=== PATIENT | female | born 1965 | race Caucasian/White ===

== ENCOUNTER 2025-03-13 15:24 | Emergency (ER) | payer OTHER, SELFPAY ==
[2025-03-13] VITALS (19 sets, daily range): BP systolic 95–153; BP diastolic 55–78; PULSE 81–110; RESP 14–28; TEMP 38.4; O2SAT 92–96; BMI 24.9
--- NOTE | 2025-03-13 15:41 | DI.RAD.S_ITS ---
PROCEDURE: XR CHEST 1V INDICATIONS: suspected sepsis TECHNIQUE: One view of the chest was acquired. COMPARISON: [facility], , US PERIPH VENOUS LOW EXTREM RT, 03/13/2025, 16:34. [facility], CR, XR TIBIA FIBULA RT 2V, 03/13/2025, 16:05. FINDINGS: Surgical changes and devices: None. Lungs and pleura: Lungs are clear. No pleural effusions or pneumothorax. Mediastinum: The cardiac contours are within normal limits. The aorta demonstrates calcification and tortuosity. Bones and chest wall: No suspicious bony lesions. Overlying soft tissues appear unremarkable. IMPRESSION: No focal infiltrates are seen. Dictated by: Yuriy Gerber M.D. on 03/13/2025 at 15:43 Approved by: Yuriy Gerber M.D. on 03/13/2025 at 15:44
--- NOTE | 2025-03-13 15:43 | DI.US.S_ITS ---
PROCEDURE: US PERIPH VENOUS LOW EXTREM RT INDICATIONS: pain/swelling, post ORIF TECHNIQUE: Real-time imaging, as well as color and pulse Doppler interrogation, were performed of the lower extremity deep veins from the inguinal ligament to the popliteal fossa, with documentation of the visualized calf veins. COMPARISON: [facility], CR, XR TIBIA FIBULA RT 2V, 03/13/2025, 16:05. [facility], CR, XR CHEST 1V, 03/13/2025, 15:55. FINDINGS: The common femoral, femoral, popliteal, and the visualized calf veins are normally compressible, and free of intraluminal thrombus. Color and pulse Doppler demonstrate normal phasic intraluminal flow. There is normal augmentation response to distal compression maneuver. IMPRESSION: No findings of lower extremity deep venous thrombosis. Dictated by: Yuriy Gerber M.D. on 03/13/2025 at 16:12 Approved by: Yuriy Gerber M.D. on 03/13/2025 at 16:13
[2025-03-13] MEDS: SODIUM CHLORIDE 0.9% 1,000 ML 1000 ML IV (16:01)
--- NOTE | 2025-03-13 16:05 | ED.SKABFB ---
HPI - Skin/Abscess/Foreign Bdy <Cholo Izaguirre DO - Last Filed: 03/14/25 09:01> General Chief complaint: Skin/Abscess/Foreign Body Stated complaint: possible infection rt leg Time Seen by Provider: 03/13/25 15:36 Source: patient Mode of arrival: Wheelchair History of Present Illness HPI narrative: 59-year-old female recently had open reduction internal fixation right tib-fib January 29 in [place] presents with severe right-sided leg pain that started last night worse this morning. Patient has noticed increased redness and tiny bit of drainage from incision site. Patient has already follow up with orthopedic provider Dr. Marroquin [facility] once already. Patient denies fever chills body aches his pain shortness of breath. Nonweightbearing at this time. Other than what is stated 14 point review of system is negative. Related Data Previous Rx's ?Medication ?Instructions ?Recorded oxycodone-acetaminophen 5 mg-325 1 tab PO Q4-6H PRN pain #14 tabs 03/14/25 mg tablet (Percocet) sulfamethoxazole 800 1 tab PO BID 7 days #14 tabs 03/14/25 mg-trimethoprim 160 mg tablet (Bactrim DS) Allergies Allergy/AdvReac Type Severity Reaction Status Date / Time No Known Drug Allergies Allergy Verified 03/13/25 15:41 <Dav White MD - Last Filed: 03/14/25 04:16> History of Present Illness HPI narrative: 59-year-old female recently had open reduction internal fixation right tib-fib January 29 in [place] presents with severe right-sided leg pain that started last night worse this morning. Patient has noticed increased redness and tiny bit of drainage from incision site. Patient has already follow up with [facility]. Patient denies fever chills body aches his pain shortness of breath. Nonweightbearing at this time. Other than what is stated 14 point review of system is negative. Review of Systems <Cholo Izaguirre DO - Last Filed: 03/14/25 09:01> Review of Systems ROS Unobtainable: All systems reviewed & are unremarkable except as noted in HPI and below Patient History <Cholo Izaguirre DO - Last Filed: 03/14/25 09:01> Social History Smoking Status: Current some day smoker Smoking Status: Current some day smoker tobacco type: vaping Exam <Cholo Izaguirre DO - Last Filed: 03/14/25 09:01> Narrative Exam Narrative: GENERAL: [59] year old patient appears stated age. Well-developed patient, in mild distress. HEAD: Atraumatic. Normocephalic. EYES: Pupils equal round and reactive. Extraocular motions intact. No scleral icterus. No injection or drainage. ENT: Nose without bleeding, purulent drainage. Throat without erythema, tonsillar hypertrophy or exudate. Airway patent. NECK: Trachea midline. Non tender CARDIOVASCULAR: Tachycardic Regular rate and rhythm without murmurs, gallops, or rubs. RESPIRATORY: Clear to auscultation. Breath sounds equal bilaterally. No wheezes, rales, or rhonchi. GASTROINTESTINAL: Abdomen soft, non-tender, nondistended. EXTREMITIES:RLE mid tibial region warm/redness/TTP/ motor/sensory intact +2DP +2PT cap refill<2secs BACK: Nontender without deformity or crepitance. No flank tenderness. NEURO: AOx3. SKIN: No rash or erythema of visible areas Initial Vital Signs Initial Vital Signs: Vital Signs Temperature 101.1 F H 03/13/25 15:28 Pulse Rate 110 H 03/13/25 15:28 Respiratory Rate 20 03/13/25 15:28 Blood Pressure 124/78 03/13/25 15:28 Pulse Oximetry 94 03/13/25 15:28 Oxygen Delivery Method Room Air 03/13/25 15:28 <Dav White MD - Last Filed: 03/14/25 04:16> Initial Vital Signs Initial Vital Signs: Vital Signs Temperature 101.1 F H 03/13/25 15:28 Pulse Rate 110 H 03/13/25 15:28 Respiratory Rate 20 03/13/25 15:28 Blood Pressure 124/78 03/13/25 15:28 Pulse Oximetry 94 03/13/25 15:28 Oxygen Delivery Method Room Air 03/13/25 15:28 Course <Cholo Izaguirre DO - Last Filed: 03/14/25 09:01> Orders Ordered: Discontinued Medications Acetaminophen (Acetaminophen 325 Mg Tablet) 975 mg PO NOW ONE Stop: 03/13/25 16:14 Last Admin: 03/13/25 16:23 Dose: 975 mg Documented By: CHARITY Hydromorphone HCl (Hydromorphone 1 Mg/Ml Syringe) 1 mg IV NOW ONE Stop: 03/13/25 16:08 Last Admin: 03/13/25 16:12 Dose: 1 mg Documented By: CHARITY Hydromorphone HCl (Hydromorphone Hcl 0.5 Mg/0.5 Ml Syringe) 0.5 mg IV NOW ONE Stop: 03/13/25 23:52 Last Admin: 03/14/25 00:13 Dose: 0.5 mg Documented By: MERCY Sodium Chloride (Normal Saline 0.9%) 1,000 mls @ 1,000 mls/hr IV BOLUS ONE Stop: 03/13/25 16:40 Last Infusion: 03/13/25 16:32 Dose: Infused Documented By: Admin: 03/13/25 16:01 Dose: 1,000 mls/hr Documented By: BENIGNO Vancomycin HCl (Vancomycin) 1,000 mg in 200 mls @ 200 mls/hr IV NOW ONE Stop: 03/13/25 17:11 Last Infusion: 03/13/25 17:59 Dose: Infused Documented By: Admin: 03/13/25 17:05 Dose: 200 mls/hr Documented By: JUAN JOSE Piperacillin Sod/Tazobactam (Sod 4.5 gm/ Sodium Chloride) 100 mls @ 200 mls/hr IV NOW ONE Stop: 03/13/25 16:12 Last Infusion: 03/13/25 16:50 Dose: Infused Documented By: Admin: 03/13/25 16:20 Dose: 200 mls/hr Documented By: CHARITY Lactated Ringer's (Lactated Ringers) 500 mls @ 1,000 mls/hr IV BOLUS ONE Stop: 03/13/25 16:43 Last Admin: 03/13/25 16:43 Dose: Not Given Documented By: JUAN JOSE Lactated Ringer's (Lactated Ringers) 500 mls @ 1,000 mls/hr IV BOLUS ONE Stop: 03/13/25 16:51 Last Admin: 03/13/25 16:44 Dose: Not Given Documented By: JUAN JOSE Lactated Ringer's (Lactated Ringers) 500 mls @ 1,000 mls/hr IV BOLUS ONE Stop: 03/13/25 17:00 Last Admin: 03/13/25 16:44 Dose: Not Given Documented By: JUAN JOSE Lactated Ringer's (Lactated Ringers) 1,000 mls @ 1,000 mls/hr IV BOLUS ONE Stop: 03/13/25 17:33 Last Infusion: 03/13/25 17:59 Dose: Infused Documented By: Admin: 03/13/25 16:36 Dose: 1,000 mls/hr Documented By: CHARITY Ketorolac Tromethamine (Ketorolac 30 Mg/Ml Vial) 15 mg IV NOW ONE Stop: 03/13/25 16:14 Last Admin: 03/13/25 16:20 Dose: 15 mg Documented By: CHARITY Ondansetron HCl (Ondansetron 4 Mg/2 Ml Inj) 4 mg IV NOW PRN PRN Reason: Nausea And Vomiting Last Admin: 03/13/25 16:21 Dose: 4 mg Documented By: CHARITY Ondansetron HCl (Ondansetron 4 Mg Odt) 4 mg PO NOW PRN PRN Reason: Nausea And Vomiting Oxycodone/Acetaminophen (Oxycodone/Apap 5/325 Prepack) 1 bottle MISC DIRECTED ONE Stop: 03/14/25 00:56 Last Admin: 03/14/25 01:17 Dose: 1 bottle Documented By: KALPANA Vital Signs Vital signs: Vital Signs - 8 hr 03/14/25 01:46 Temperature 99.4 F Pulse Rate 84 Respiratory Rate 20 Blood Pressure 112/70 Pulse Oximetry 96 Oxygen Delivery Method Room Air <Dav White MD - Last Filed: 03/14/25 04:16> Orders Ordered: Discontinued Medications Acetaminophen (Acetaminophen 325 Mg Tablet) 975 mg PO NOW ONE Stop: 03/13/25 16:14 Last Admin: 03/13/25 16:23 Dose: 975 mg Documented By: CHARITY Hydromorphone HCl (Hydromorphone 1 Mg/Ml Syringe) 1 mg IV NOW ONE Stop: 03/13/25 16:08 Last Admin: 03/13/25 16:12 Dose: 1 mg Documented By: CHARITY Hydromorphone HCl (Hydromorphone Hcl 0.5 Mg/0.5 Ml Syringe) 0.5 mg IV NOW ONE Stop: 03/13/25 23:52 Last Admin: 03/14/25 00:13 Dose: 0.5 mg Documented By: MERCY Sodium Chloride (Normal Saline 0.9%) 1,000 mls @ 1,000 mls/hr IV BOLUS ONE Stop: 03/13/25 16:40 Last Infusion: 03/13/25 16:32 Dose: Infused Documented By: Admin: 03/13/25 16:01 Dose: 1,000 mls/hr Documented By: BENIGNO Vancomycin HCl (Vancomycin) 1,000 mg in 200 mls @ 200 mls/hr IV NOW ONE Stop: 03/13/25 17:11 Last Infusion: 03/13/25 17:59 Dose: Infused Documented By: Admin: 03/13/25 17:05 Dose: 200 mls/hr Documented By: JUAN JOSE Piperacillin Sod/Tazobactam (Sod 4.5 gm/ Sodium Chloride) 100 mls @ 200 mls/hr IV NOW ONE Stop: 03/13/25 16:12 Last Infusion: 03/13/25 16:50 Dose: Infused Documented By: Admin: 03/13/25 16:20 Dose: 200 mls/hr Documented By: CHARITY Lactated Ringer's (Lactated Ringers) 500 mls @ 1,000 mls/hr IV BOLUS ONE Stop: 03/13/25 16:43 Last Admin: 03/13/25 16:43 Dose: Not Given Documented By: JUAN JOSE Lactated Ringer's (Lactated Ringers) 500 mls @ 1,000 mls/hr IV BOLUS ONE Stop: 03/13/25 16:51 Last Admin: 03/13/25 16:44 Dose: Not Given Documented By: JUAN JOSE Lactated Ringer's (Lactated Ringers) 500 mls @ 1,000 mls/hr IV BOLUS ONE Stop: 03/13/25 17:00 Last Admin: 03/13/25 16:44 Dose: Not Given Documented By: JUAN JOSE Lactated Ringer's (Lactated Ringers) 1,000 mls @ 1,000 mls/hr IV BOLUS ONE Stop: 03/13/25 17:33 Last Infusion: 03/13/25 17:59 Dose: Infused Documented By: Admin: 03/13/25 16:36 Dose: 1,000 mls/hr Documented By: CHARITY Ketorolac Tromethamine (Ketorolac 30 Mg/Ml Vial) 15 mg IV NOW ONE Stop: 03/13/25 16:14 Last Admin: 03/13/25 16:20 Dose: 15 mg Documented By: CHARITY Ondansetron HCl (Ondansetron 4 Mg/2 Ml Inj) 4 mg IV NOW PRN PRN Reason: Nausea And Vomiting Last Admin: 03/13/25 16:21 Dose: 4 mg Documented By: CHARITY Ondansetron HCl (Ondansetron 4 Mg Odt) 4 mg PO NOW PRN PRN Reason: Nausea And Vomiting Oxycodone/Acetaminophen (Oxycodone/Apap 5/325 Prepack) 1 bottle MISC DIRECTED ONE Stop: 03/14/25 00:56 Last Admin: 03/14/25 01:17 Dose: 1 bottle Documented By: KALPANA Vital Signs Vital signs: Vital Signs - 8 hr 03/14/25 01:46 Temperature 99.4 F Pulse Rate 84 Respiratory Rate 20 Blood Pressure 112/70 Pulse Oximetry 96 Oxygen Delivery Method Room Air MDM - Skin/Abscess/Foreign Bdy <Cholo Izaguirre, - Last Filed: 03/14/25 09:01> Lab Data 03/13/25 15:50 03/13/25 15:50 Labs: Lab Results 03/13/25 Range/Units 15:50 WBC 16.6 H (4.5-11.0) X10^3/uL RBC 4.34 (4.0-5.2) X10^6/uL Hgb 13.6 (12.0-16.0) g/dL Hct 39.6 (36-46) % MCV 91.4 (80-100) fL MCH 31.4 (26-34) PG MCHC 34.4 (30-36) % RDW 13.7 (11.6-14.8) % Plt Count 257 (150-400) X10^3/uL Neut % (Auto) 85.0 H (50-75) % Lymph % (Auto) 9.2 L (25-40) % [place] % (Auto) 4.9 (3-14) % Eos % (Auto) 0.5 L (2-4) % Baso % (Auto) 0.4 (0-2) % Neut # (Auto) 66835 H (0748-0444) /uL Lymph # (Auto) 1500 (0272-8555) /uL [place] # (Auto) 800 (0-900) /uL Eos # (Auto) 100 (0-450) /uL Baso # (Auto) 100 (0-100) /uL ESR 15 (0-20) MM/HR PT 10.7 (9.4-12.5) SECONDS INR 0.9 (0.9-1.3) APTT 28 (25.1-36.5) SECONDS Sodium 139 (137-145) mmol/L Potassium 4.3 (3.4-5.1) mmol/L Chloride 106 (98-107) mmol/L Carbon Dioxide 23 (22-32) mmol/L BUN 22 H (7-17) mg/dL Creatinine 1.01 (0.52-1.04) mg/dL Estimated GFR > 60 (>60) mL/min BUN/Creatinine Ratio 21.8 (6-22) Glucose 119 H (70-99) mg/dL Lactate 2.0 (0.7-2.1) mmol/L Calcium 9.4 (8.4-10.2) mg/dL Total Bilirubin 0.5 (0.2-1.3) mg/dL AST 89 H (14-36) IU/L ALT 82 H (<35) IU/L Alkaline Phosphatase 173 H (38-126) U/L C-Reactive Protein 2.9 H (<1.0) mg/dL Total Protein 7.6 (6.3-8.2) g/dL Albumin 4.6 (3.5-5.0) g/dL Globulin 3.0 (1.7-4.1) g/dL Albumin/Globulin Ratio 1.5 (1.0-2.8) Lipase 59 (23-300) U/L Procalcitonin 0.073 (<0.5) ng/mL Urine Dip Bedside Urine Glucose Negative Bedside Urine Bilirubin - Negative Bedside Urine Ketone - Negative Urine Specific [place] 1.015 Bedside Urine Occult Blood - Negative Bedside Urine pH 6.0 Bedside Urine Protein - Negative Bedside Urine Urobilinogen - Negative Bedside Urine Nitrite - Negative Bedside Urine Leukocytes - Negative Esterase Imaging Data US - DVT: Radiologist's Impression: [address] [address] Ultrasound Report Signed Patient: Hoda Mccormack MR#: [id number] : 1965 Acct:[id number] Age/Sex: 59 / F Date of Service: 03/13/25 Loc: ED Accession Number: [id number] Procedure: US periph venous low extrem rt Ordering Provider: Cholo Izaguirre D.O. PROCEDURE: PERIP VENOUS LOW EXTREM RT INDICATIONS: pain/swelling, post ORIF TECHNIQUE: Real-time imaging, as well as color and pulse Doppler interrogation, were performed of the lower extremity deep veins from the inguinal ligament to the popliteal fossa, with documentation of the visualized calf veins. COMPARISON: [facility], CR, XR TIBIA FIBULA RT 2V, 03/13/2025, 16:05. [facility], CR, XR CHEST 1V, 03/13/2025, 15:55. FINDINGS: The common femoral, femoral, popliteal, and the visualized calf veins are normally compressible, and free of intraluminal thrombus. Color and pulse Doppler demonstrate normal phasic intraluminal flow. There is normal augmentation response to distal compression maneuver. IMPRESSION: No findings of lower extremity deep venous thrombosis. Dictated by: Yuriy Gerber M.D. on 03/13/2025 at 16:12 Approved by: Yuriy Gerber M.D. on 03/13/2025 at 16:13 Extremity x-ray #1: Radiologist's Impression: [place] [address] XRay Report Signed Patient: Hoda Mccormack MR#: [id number] : 1965 Acct:[id number] Age/Sex: 59 / F Date of Service: 03/13/25 Loc: ED Accession Number: [id number] Procedure: XR tibia fibula RT 2V Ordering Provider: Cholo Izaguirre D.O. PROCEDURE: XR TIBIA FUBULA RT 2V INDICATIONS: pain TECHNIQUE: 2 views of the tibia and fibula were acquired. COMPARISON: [facility], PERIP VENOUS LOW EXTREM RT, 03/13/2025, 16:34. [facility], CR, XR CHEST 1V, 03/13/2025, 15:55. FINDINGS: Bones: Plate and screw fixation can be seen of the distal tibia and the distal fibula. No findings of hardware failure or hardware loosening are seen. There are fractures of the distal tibia and distal fibula. Age-appropriate bony degenerative changes are seen. Soft tissues: Soft tissue swelling is seen without a focal soft tissue abnormality. IMPRESSION: Postoperative study within normal limits, with fractures of the distal tibia and distal fibula. Chest x-ray: Radiologist's Impression: [address] [address] XRay Report Signed Patient: Hoda Mccormack MR#: [id number] : 1965 Acct:[id number] Age/Sex: 59 / F Date of Service: 03/13/25 Loc: ED Accession Number: [id number] Procedure: XR chest 1V Ordering Provider: Cholo Izaguirre D.O. PROCEDURE: XR CHEST 1V INDICATIONS: suspected sepsis TECHNIQUE: One view of the chest was acquired. COMPARISON: [facility], , US PERIPH VENOUS LOW EXTREM RT, 03/13/2025, 16:34. [facility], , XR TIBIA FIBULA RT 2V, 03/13/2025, 16:05. FINDINGS: Surgical changes and devices: None. Lungs and pleura: Lungs are clear. No pleural effusions or pneumothorax. Mediastinum: The cardiac contours are within normal limits. The aorta demonstrates calcification and tortuosity. Bones and chest wall: No suspicious bony lesions. Overlying soft tissues appear unremarkable. IMPRESSION: No focal infiltrates are seen. ECG Data Interpretation: NSR HR 97 DE 154 QRS [address]-t wave change No previous ekg to compare MDM Narrative Medical decision making narrative: All labwork, vital signs, hotel night auditor note, med list, previous ER visits, and all imaging studies reviewed. Pt given toradol, tylenol, vanco, zosyn. Wbc 16.6 Hg 13.6 plt 257. Inr 0.9. Na 139 K 4.3 CL 106 Bun 22 Cr1.01. Lactic acid 2.0 Procal 0.073. Differential dx mrsa, cellulitis, dvt, hardware infection. Pt signed out to at shift change pending final disposition Discussed this case with our orthopedic surgeon Dr. Lopez who felt that the patient should receive tertiary care at a place where it was guarantee that surgery intervention would take place if needed. The patient adamantly refused to be transferred to [place] where it was suggested the patient be transferred to. The patient instead would like to follow up with her orthopedic surgeon that she has already seen through [facility] Dr. Petersen and understands the risks. Patient given IV antibiotics here in the ED for concerns of postoperative infection with vancomycin and Zosyn. Patient will be discharged with Bactrim to complete a one-week course but advised to follow up with her orthopedic surgeon 1st thing in the a.m.. Patient will follow up sooner if symptoms worsen. <Dav White MD - Last Filed: 03/14/25 04:16> Lab Data Labs: Lab Results 03/13/25 Range/Units 15:50 WBC 16.6 H (4.5-11.0) X10^3/uL RBC 4.34 (4.0-5.2) X10^6/uL Hgb 13.6 (12.0-16.0) g/dL Hct 39.6 (36-46) % MCV 91.4 (80-100) fL MCH 31.4 (26-34) PG MCHC 34.4 (30-36) % RDW 13.7 (11.6-14.8) % Plt Count 257 (150-400) X10^3/uL Neut % (Auto) 85.0 H (50-75) % Lymph % (Auto) 9.2 L (25-40) % [place] % (Auto) 4.9 (3-14) % Eos % (Auto) 0.5 L (2-4) % Baso % (Auto) 0.4 (0-2) % Neut # (Auto) 09178 H (1262-5538) /uL Lymph # (Auto) 1500 (1076-3252) /uL [place] # (Auto) 800 (0-900) /uL Eos # (Auto) 100 (0-450) /uL Baso # (Auto) 100 (0-100) /uL ESR 15 (0-20) MM/HR PT 10.7 (9.4-12.5) SECONDS INR 0.9 (0.9-1.3) APTT 28 (25.1-36.5) SECONDS Sodium 139 (137-145) mmol/L Potassium 4.3 (3.4-5.1) mmol/L Chloride 106 (98-107) mmol/L Carbon Dioxide 23 (22-32) mmol/L BUN 22 H (7-17) mg/dL Creatinine 1.01 (0.52-1.04) mg/dL Estimated GFR > 60 (>60) mL/min BUN/Creatinine Ratio 21.8 (6-22) Glucose 119 H (70-99) mg/dL Lactate 2.0 (0.7-2.1) mmol/L Calcium 9.4 (8.4-10.2) mg/dL Total Bilirubin 0.5 (0.2-1.3) mg/dL AST 89 H (14-36) IU/L ALT 82 H (<35) IU/L Alkaline Phosphatase 173 H (38-126) U/L C-Reactive Protein 2.9 H (<1.0) mg/dL Total Protein 7.6 (6.3-8.2) g/dL Albumin 4.6 (3.5-5.0) g/dL Globulin 3.0 (1.7-4.1) g/dL Albumin/Globulin Ratio 1.5 (1.0-2.8) Lipase 59 (23-300) U/L Procalcitonin 0.073 (<0.5) ng/mL Urine Dip Bedside Urine Glucose Negative Bedside Urine Bilirubin - Negative Bedside Urine Ketone - Negative Urine Specific [place] 1.015 Bedside Urine Occult Blood - Negative Bedside Urine pH 6.0 Bedside Urine Protein - Negative Bedside Urine Urobilinogen - Negative Bedside Urine Nitrite - Negative Bedside Urine Leukocytes - Negative Esterase Imaging Data ct lower extremity: Radiologist's Impression: Postsurgical changes of internal fixation of the both lower leg bone comminuted fractures with minimal bony callus formation. Soft tissue swelling along the anterior medial lower leg and along the lateral leg may represent postoperative change versus possible superficial infectious process such as cellulitis. No enhancing abscess is identified. Correlate with clinical exam findings. MDM Narrative Medical decision making narrative: All labwork, vital signs, hotel night auditor note, med list, previous ER visits, and all imaging studies reviewed. Pt given toradol, tylenol, vanco, zosyn. Wbc 16.6 Hg 13.6 plt 257. Inr 0.9. Na 139 K 4.3 CL 106 Bun 22 Cr1.01. Lactic acid 2.0 Procal 0.073. Differential dx mrsa, cellulitis, dvt, hardware infection. Discussed this case with our orthopedic surgeon Dr. Lopez who felt that the patient should receive tertiary care at a place where it was guarantee that surgery intervention would take place if needed. The patient adamantly refused to be transferred to [place] where it was suggested the patient be transferred to. The patient instead would like to follow up with her orthopedic surgeon that she has already seen through [facility] Dr. Petersen and understands the risks. Patient given IV antibiotics here in the ED for concerns of postoperative infection with vancomycin and Zosyn. Patient will be discharged with Bactrim to complete a one-week course but advised to follow up with her orthopedic surgeon 1st thing in the a.m.. Patient will follow up sooner if symptoms worsen. Discharge Plan Departure Patient Disposition: Home Clinical Impression: Cellulitis Qualifiers: Site of cellulitis: extremity Site of cellulitis of extremity: lower extremity Laterality: right Qualified Code(s): L03.115 - Cellulitis of right lower limb Post-operative infection Qualifiers: Encounter type: initial encounter Postoperative infection type: unspecified type Qualified Code(s): T81.40XA - Infection following a procedure, unspecified, initial encounter Instructions: DI for Cellulitis -- Adult Activity Restrictions/Additional Instructions: Take medications as prescribed. Follow up with Dr. Petersen [facility] office in the a.m.. Come back sooner if having active signs of infection even with the antibiotics. Prescriptions: New sulfamethoxazole-trimethoprim [Bactrim DS] 800-160 mg tablet 1 tab PO BID 7 Days Qty: 14 0RF oxycodone-acetaminophen [Percocet] 5-325 mg tablet 1 tab PO Q4-6H PRN (Reason: pain) Qty: 14 0RF Stand Alone Forms: Patient Portal/API
[2025-03-13 16:10] LABS: Add Manual Diff / Slide Review NO; Hematocrit 39.6 % (36-46); Hemoglobin 13.6 g/dL (12.0-16.0); Lymphocytes Absolute Auto 1500 /uL (1100-4500); Mean Corpuscular HGB Conc 34.4 % (30-36); Mean Corpuscular Hemoglobin 31.4 PG (26-34); Mean Corpuscular Volume 91.4 fL (80-100); Platelet Count 257 X10^3/uL (150-400)
--- NOTE | 2025-03-13 16:10 | DI.RAD.S_ITS ---
PROCEDURE: XR TIBIA FUBULA RT 2V INDICATIONS: pain TECHNIQUE: 2 views of the tibia and fibula were acquired. COMPARISON: [facility], , US PERIPH VENOUS LOW EXTREM RT, 03/13/2025, 16:34. [facility], CR, XR CHEST 1V, 03/13/2025, 15:55. FINDINGS: Bones: Plate and screw fixation can be seen of the distal tibia and the distal fibula. No findings of hardware failure or hardware loosening are seen. There are fractures of the distal tibia and distal fibula. Age-appropriate bony degenerative changes are seen. Soft tissues: Soft tissue swelling is seen without a focal soft tissue abnormality. IMPRESSION: Postoperative study within normal limits, with fractures of the distal tibia and distal fibula. Dictated by: Yuriy Gerber M.D. on 03/13/2025 at 15:44 Approved by: Yuriy Gerber M.D. on 03/13/2025 at 15:45
[2025-03-13] MEDS: PIPERACILLIN/TAZO 4.5 GM in SODIUM CHLORIDE 0.9% 100 ML IV (16:20)
[2025-03-13] MEDS: KETOROLAC 30 MG/ML VIAL 15 MG IV (16:20)
[2025-03-13 16:21] LABS: INR 0.9 (0.9-1.3); Prothrombin Time 10.7 SECONDS (9.4-12.5)
[2025-03-13] MEDS: ONDANSETRON 4 MG/2 ML INJ IV (16:21)
[2025-03-13 16:22] LABS: Lactate (Lactic Acid) 2.0 mmol/L (0.7-2.1)
--- NOTE | 2025-03-13 16:22 | EKG_ITS ---
[address] [address] Test Date: 2025-03-13 Pat Name: Hoda Mccormack Department: 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
[2025-03-13 16:23] LABS: Alanine Aminotransferase 82 IU/L (<35); Albumin 4.6 g/dL (3.5-5.0); Albumin Globulin Ratio 1.5 (1.0-2.8); Alkaline Phosphatase 173 U/L (38-126); Blood Urea Nitrogen 22 mg/dL (7-17); Calcium 9.4 mg/dL (8.4-10.2); Carbon Dioxide 23 mmol/L (22-32); Chloride 106 mmol/L (98-107); Estimated Glomerular Filt Rate > 60 mL/min (>60); Globulin 3.0 g/dL (1.7-4.1); Glucose 119 mg/dL (70-99); HEMOLYSIS < 15 (0-50); Lipase 59 U/L (23-300); Potassium 4.3 mmol/L (3.4-5.1); Sodium 139 mmol/L (137-145); Total Protein 7.6 g/dL (6.3-8.2)
[2025-03-13] MEDS: ACETAMINOPHEN 325 MG TABLET 975 MG PO (16:23)
[2025-03-13 16:24] LABS: PTT Partial Thromboplastin Tim 28 SECONDS (25.1-36.5)
[2025-03-13] MEDS: LACTATED RINGERS 1,000 ML 1000 ML IV (16:36)
[2025-03-13 16:40] LABS: Procalcitonin 0.073 ng/mL (<0.5)
[2025-03-13] MEDS: VANCOMYCIN 1,000 MG/200 ML PIGGYBACK 200 MG IV (17:05)
--- NOTE | 2025-03-13 17:53 | DI.CT.S_ITS ---
PROCEDURE: CT LE RT W CON INDICATIONS: Per request. Prior lower extremity injury. TECHNIQUE: After the administration of intravenous contrast, 3 mm axial sections acquired of the right lower leg , with coronal and sagittal reformats. COMPARISON: [facility], CR, XR TIBIA FIBULA RT 2V, 03/13/2025, 16:05. FINDINGS: Image quality: Diagnostic Bones: Changes of internal fixation of the tibia for an comminuted mid to distal tibial shaft fracture. No hardware loosening or failure. There is minimal bony callus formation along the fracture planes. Changes of internal fixation of the distal fibula for a comminuted fracture. No hardware loosening or failure. There is mild early bony callus formation along the fracture planes. No acute fracture or dislocation. Soft tissues: Subcutaneous fat edema along the surgical plane along the anterior medial distal lower leg. Subcutaneous fat edema along the prior surgical incision along the lateral lower leg. No focal enhancing collection. IMPRESSION: Postsurgical changes of internal fixation of the both lower leg bone comminuted fractures with minimal bony callus formation. Soft tissue swelling along the anterior medial lower leg and along the lateral leg may represent postoperative change versus possible superficial infectious process such as cellulitis. No enhancing abscess is identified. Correlate with clinical exam findings. Dictated by: Bernardino Robin M.D. on 03/13/2025 at 18:52 Approved by: Bernardino Robin M.D. on 03/13/2025 at 18:56
--- NOTE | 2025-03-13 21:25 | W.PC.EDHO ---
Handoff/shift report received from [facility]
[2025-03-14] VITALS: PULSE 79; RESP 14; O2SAT 95
[2025-03-14 00:30] VITALS: PULSE 81; RESP 16; O2SAT 90
[2025-03-14 01:00] VITALS: PULSE 83; RESP 16; O2SAT 93
[2025-03-14 01:46] VITALS: BP 112/70; PULSE 84; RESP 20; TEMP 37.4; O2SAT 96
== END 2025-03-14 01:48 | disposition home or self-care (01) ==
PROVIDERS: Family Medicine; Emergency Provider Family Medicine
DX: L03.115 Cellulitis of right lower limb (principal); T81.40XA Infection following a procedure, unspecified, initial encounter
CPT/HCPCS: 36415; 71045; 73590; 73701; 80053; 81003; 83605; 83690; 84145; 85025; 85610; 85651; 85730; 86140; 87040; 93005; 93010; 93971; 96361; 96365; 96375; 96376; 99284; J1171; J1885; J2405; J2543; J3375; J7030; J7050; J7120; Q9967